=== PATIENT | male | born 1990 | race Caucasian/White ===

== ENCOUNTER 2023-05-15 15:27 | Observation (INO) | payer BC ==
[2023-05-15] MEDS ORDERED: ASPIRIN 81 MG PO STA (16:34)
--- NOTE | 2023-05-15 16:55 | ED ---
Chest Pain HPI - General Chief Complaint: Chest Pain Stated Complaint: Chest Pain Time Seen by Provider: 05/15/23 15:36 Source: patient Mode of arrival: ambulatory Limitations: no limitations - History of Present Illness Initial Comments: Colt Zaman is a previously healthy 32-year-old male presents the emergency department today for evaluation of chest pain. Patient reports that he was smoking a cigarette when he felt pain in his chest and epigastrium. Pain was not associated with any palpitations, diaphoresis or lightheadedness. He does report feeling somewhat short of breath. He has no previous cardiac history. No previous medical history at all. No significant family history. No history of early heart disease, DVT PE in any relatives that he is aware of. Patient reports that the discomfort in her shortness breath or says it is less intense. - Related Data Home Medications Medication Instructions Recorded Confirmed No Known Home Medications 05/15/23 05/15/23 Allergies Allergy/AdvReac Type Severity Reaction Status Date / Time No Known Allergies Allergy Verified 05/15/23 17:57 Review of Systems ROS Statement: Those systems with pertinent positive or pertinent negative responses have been documented in the HPI. ROS Other: All systems not noted in ROS Statement are negative. EKG Findings - EKG Comments: EKG Findings:: EKG interpreted by me, EKG was obtained due to tachycardia chest pain EKG was obtained at 1539 rate is 110 rhythm is a narrow complex tachycardia P-wave before each QRS consistent with a sinus tachycardia. There is a rightward axis normal intervals AK 116 QRS 94 QTC 361 there is no acute ST elevations or depressions no evidence of acute ischemia or infarction. Past Medical History Past Medical History: No Reported History History of Any Multi-Drug Resistant Organisms: None Reported Past Surgical History: No Surgical Hx Reported Past Psychological History: No Psychological Hx Reported Smoking Status: Current every day smoker Past Alcohol Use History: Occasional Past Drug Use History: None Reported General Exam - General Exam Comments Initial Comments: Physical Exam GENERAL: Patient is well-developed and well-nourished. Patient is nontoxic and well-hydrated and is in no distress. HENT: Normocephalic, Atraumatic. EYES: PERRL, EOMI PULMONARY: Unlabored respirations. No audible rales rhonchi or wheezing was noted. CARDIOVASCULAR: Tachycardic, regular ABDOMEN: Soft and nontender with normal bowel sounds. SKIN: Skin is clear with no lesions or rashes and otherwise unremarkable. : Deferred NEUROLOGIC: Patient is alert and oriented x3. Moving all extremities spontaneously MUSCULOSKELETAL: Normal extremities with adequate strength and full range of motion. No lower extremity swelling or edema. No calf tenderness. PSYCHIATRIC: Normal psychiatric evaluation. Limitations: no limitations Course Vital Signs 05/15/23 05/15/23 05/15/23 15:30 16:47 18:00 Temperature 97.9 F Pulse Rate 126 H 93 82 Respiratory 18 20 18 Rate Blood Pressure 131/81 109/87 123/81 O2 Sat by Pulse 97 98 99 Oximetry 05/15/23 05/15/23 05/15/23 18:15 18:30 18:45 Temperature Pulse Rate 80 99 101 H Respiratory 18 4 L 18 Rate Blood Pressure 117/84 117/84 116/81 O2 Sat by Pulse 98 100 100 Oximetry 05/15/23 05/15/23 05/15/23 19:00 19:10 19:19 Temperature Pulse Rate 85 72 85 Respiratory 15 17 18 Rate Blood Pressure 116/81 113/87 122/87 O2 Sat by Pulse 100 Oximetry 05/15/23 05/15/23 05/15/23 19:30 19:40 19:50 Temperature Pulse Rate 71 73 68 Respiratory 15 15 21 Rate Blood Pressure 115/82 114/79 120/82 O2 Sat by Pulse 100 100 100 Oximetry 05/15/23 20:00 Temperature Pulse Rate 72 Respiratory 15 Rate Blood Pressure 115/78 O2 Sat by Pulse 100 Oximetry Chest Pain MDM - [facility] Patient was seen and evaluated, history was obtained from patient Labs and xray were obtained CXR with large right pneumothorax without evidence of tension Patient was transported to resuscitation bay, placed on oxygen 6L NC Patient consented for thoravent placement Versed given for anxiolysis Right sided thoravent placed Xray confrimed placement and re-expansion of lung Patient care discussed with Dr Quintana who accepts admission with consult to pulmonology Patient updated on plan for admission Was pt. sent in by a medical professional or institution (, PA, INSECTICIDE EXPERT, urgent care, hospital, or intermediate...) When possible be specific @ -[No] Did you speak to anyone other than the patient for history (EMS, parent, family, police, friend...)? What history was obtained from this source @ -[No] Did you review nursing and triage notes (agree or disagree)? Why? @ -[I reviewed and agree with nursing and triage notes] Were old charts reviewed (outside hosp., previous admission, EMS record, old EKG, old radiological studies, urgent care reports/EKG's, intermediate records)? Report findings @ -[No old charts were reviewed] Differential Diagnosis (chest pain, altered mental status, abdominal pain women, abdominal pain men, vaginal bleeding, weakness, fever, dyspnea, syncope, hea dache, dizziness, GI bleed, back pain, seizure, CVA, palpatations, mental health, musculoskeletal)? @ -Differential Chest Pain: Stable Angina, Unstable Angina, STEMI, NSTEMI Aortic Dissection, Pneumothorax, Musculoskeletal, Esophageal Spasm GERD, Cholecystitis, Pancreatitis, Zoster, this is not meant to be an all-inclusive list. EKG interpreted by me (3pts min.). @ -[As above] X-rays interpreted by me (1pt min.). @ -Large right-sided pneumothorax no signs of tension CT interpreted by me (1pt min.). @ -[None done] U/S interpreted by me (1pt. min.). @ -[None done] What testing was considered but not performed or refused? (CT, X-rays, U/S, labs)? Why? @ -[None] What meds were considered but not given or refused? Why? @ -Pain medication was declined Did you discuss the management of the patient with other professionals (professionals i.e. , PA, INSECTICIDE EXPERT, lab, RT, psych nurse, social work administrator, bindery leadperson, teacher, security officers and guards, case consultant)? Give summary @ -Discussed with the admitting team Was smoking cessation discussed for >3mins.? @ -YES Was critical care preformed (if so, how long)? @ -[No] Were there social determinants of health that impacted care today? How? (Homelessness, low income, unemployed, alcoholism, drug addiction, transportation, low edu. Level, literacy, decrease access to med. care, prison, rehab)? @ -[No] Was there de-escalation of care discussed even if they declined (Discuss DNR or withdrawal of care, Hospice)? DNR status @ -[No] What co-morbidities impacted this encounter? (DM, HTN, Smoking, COPD, CAD, Cancer, CVA, ARF, Chemo, Hep., AIDS, mental health diagnosis, sleep apnea, morbid obesity)? @ -Smoking Was patient admitted / discharged? Hospital course, mention meds given and route, prescriptions, significant lab abnormalities, going to OR and other pertinent info. @ -Admit Undiagnosed new problem with uncertain prognosis? @ -[No] Drug Therapy requiring intensive monitoring for toxicity (Heparin, Nitro, Insulin, Cardizem)? @ -[No] Were any procedures done? @ -Yes, door of a chest tube Diagnosis/symptom? @ -Spontaneous pneumothorax Acute, or Chronic, or Acute on Chronic? @ -Acute Uncomplicated (without systemic symptoms) or Complicated (systemic symptoms)? @ -Uncomplicated Side effects of treatment? @ -[No] Exacerbation, Progression, or Severe Exacerbation? @ -[No] Poses a threat to life or bodily function? How? (Chest pain, [place], [place], pneumonia, PE, COPD, DKA, ARF, appy, cholecystitis, CVA, Diverticulitis, Homicidal, Suicidal, threat to staff... and all critical care pts) @ -Yes, can become a tension pneumothorax resulting in hemodynamic instability and cardiac pulmonary arrest Disposition Clinical Impression: Spontaneous pneumothorax Disposition: ADMITTED IP TO THIS [facility] Condition: Stable Is patient prescribed a controlled substance at d/c from ED?: No
[2023-05-15 17:03] LABS: Basophils % (A) 0 %; Eosinophils # (A) 0.1 k/uL (0-0.7); Eosinophils % (A) 1 %; HCT 48.6 % (39.0-53.0); Lymphocytes # (A) 2.2 k/uL (1.0-4.8); Lymphocytes % (A) 27 %; MCH 31.7 pg (25.0-35.0); MCV 90.6 fL (80.0-100.0); Mean Platelet Volume 7.6; Monocytes # (A) 0.5 k/uL (0-1.0); Monocytes % (A) 6 %; Neutrophils # (A) 5.4 k/uL (1.3-7.7); Neutrophils % (A) 65 %; Platelet Count 286 k/uL (150-450); RBC 5.36 m/uL (4.30-5.90); RDW 12.7 % (11.5-15.5); WBC 8.3 k/uL (3.8-10.6)
[2023-05-15 17:16] LABS: Partial Thromboplastin Time 23.7 sec (22.0-30.0); Prothrombin Time 10.8 sec (9.0-12.0)
[2023-05-15 17:17] LABS: ALT 55 U/L (4-49); AST 52 U/L (17-59); African American GFR (CKD) >90 (>60 ml/min/1.73 sqM); Albumin 4.7 g/dL (3.5-5.0); Alkaline Phosphatase 70 U/L (38-126); Anion Gap 7 mmol/L; Blood Urea Nitrogen 15 mg/dL (9-20); Calcium 9.4 mg/dL (8.4-10.2); Carbon Dioxide 30 mmol/L (22-30); Chloride 100 mmol/L (98-107); Glucose 93 mg/dL (74-99); Lipase 74 U/L (23-300); Non-African American GFR(CKD) >90 (>60 ml/min/1.73 sqM); Potassium 4.3 mmol/L (3.5-5.1); Sodium 137 mmol/L (137-145); Total Bilirubin 0.5 mg/dL (0.2-1.3); Total Protein 7.8 g/dL (6.3-8.2)
--- NOTE | 2023-05-15 17:52 | XR ---
EXAMINATION TYPE: XR chest 2V DATE OF EXAM: 05/15/2023 5:42 PM COMPARISON: None TECHNIQUE: XR chest 2V . CLINICAL INDICATION:Male, 32 years old with history of Chest Pain; FINDINGS: Lungs/Pleura: Large right-sided pneumothorax with near complete multilobar atelectasis. No evidence f or tension physiology. Left lung is clear. Pulmonary vascularity: Unremarkable. Heart/mediastinum: Cardiomediastinal silhouette is unremarkable. Musculoskeletal: No acute osseous pathology. Findings communicated to Dr. Emily Bradford DO on 05/15/2023 5:[address] Tameka Lynne. IMPRESSION: Large right pneumothorax without evidence for tension physiology.
[2023-05-15] MEDS ORDERED: MIDAZOLAM 1 MG/ML 5 ML VIAL IV STA (18:15)
[2023-05-15] MEDS ORDERED: LIDOCAINE 1% INJ 10MG/ML (20 ML MDV) SQ ONE (19:01)
[2023-05-15] MEDS ORDERED: NALOXONE 0.4 MG/ML 1 ML VIAL IV PRN (19:03)
--- NOTE | 2023-05-15 19:42 | XR ---
EXAMINATION TYPE: XR chest 2V DATE OF EXAM: 05/15/2023 COMPARISON: Earlier today HISTORY: 32-year-old male chest tube placement TECHNIQUE: AP and lateral views FINDINGS: After right-sided thoracic vent placement, there is a residual trace right apical pneumothorax measur ing 7 mm. Some patchy opacity at the right base likely atelectasis. No pleural effusion. Heart normal size. IMPRESSION: Residual trace 7 mm right apical pneumothorax following Thoravent placement. Some patchy right basila r opacity, likely atelectasis.
--- NOTE | 2023-05-16 00:03 | P.HPIM ---
History of Present Illness H&P Date: 05/15/23 The patient is a 32-year-old male with no known PMH who had presented to the emergency room with complaints of chest pain. The patient reports that he was in his usual state of health until this afternoon when while he was smoking a cigarette he suddenly developed chest discomfort and shortness of breath. He denied experiencing diaphoresis, nausea, vomiting, or palpitations. Patient denied recent travel or history of PEs or [place]. Also denied any family history of cardiac disease. Patient denied history of pneumothorax. Patient reports that his chest pain had resolved at the time of interview when he felt that his baseline. In the emergency room, chest x-ray revealed a large right-sided pneumothorax without evidence of tension. A thora-vent was placed by the ED provider with subsequent chest x-ray showing residual trace 7 mm right apical pneumothorax. EKG upon presentation had revealed sinus tachycardia at 110 bpm. Laboratory evaluation in the emergency room was unremarkable except for an ALT of 55. Patient denied hitory of trauma. ED documentation reviewed and case discussed with ED provider. Review of systems: Pertinent positives and negatives as discussed in HPI, a complete review of systems was performed and all other systems are negative. Physical examination: Vital signs reviewed General: non toxic, no distress, appears at stated age, normal weight Derm: no unusual rashes/lesions, warm Head: atraumatic, normocephalic, symmetric Eyes: EOMI, no lid lag, anicteric sclera, pupils equal round reactive to light ENT: Nose and ears atraumatic Neck: No cervical lymphadenopathy, trachea midline, supple Mouth: no lip lesion, mucus membranes moist Cardiovascular: S1S2 reg, no murmur, positive dorsalis pedis pulse bilateral, no edema, R sided thoravent noted Lungs: CTA bilateral, no rhonchi, no rales, no accessory muscle use Abdominal: soft, nontender to palpation, no guarding Ext: muscle strength 5 out of 5 in all 4 extremities grossly, no gross muscle atrophy, no contractures, Neuro: CN II-XI grossly intact, no gross focal neuro deficits Psych: Alert, oriented, appropriate affect Assessment: Spontaneous pneumothorax Imaging: In the emergency room, chest x-ray revealed a large right-sided pneumothorax without evidence of tension. Data Review: Laboratory evaluation in the emergency room was unremarkable except for an ALT of 55. Plan: Status post right sided thora-vent placement Patient advised on importance of smoking cessation Pulmonary consulted DVT prophylaxis: Lovenox Subq The patient is admitted with an anticipated less than 2 midnight stay for evaluation of pneumothorax CODE STATUS: Full Code Discussed with: Patient Anticipated discharge place: Home Past Medical History Past Medical History: No Reported History History of Any Multi-Drug Resistant Organisms: None Reported Past Surgical History: No Surgical Hx Reported Past Psychological History: No Psychological Hx Reported Smoking Status: Current every day smoker Past Alcohol Use History: Occasional Past Drug Use History: None Reported - Past Family History Father Family Medical History: No Reported History (patient reports family is healthy) Medications and Allergies Home Medications Medication Instructions Recorded Confirmed Type No Known Home Medications 05/15/23 05/15/23 History Allergies Allergy/AdvReac Type Severity Reaction Status Date / Time No Known Allergies Allergy Verified 05/15/23 17:57 Physical Exam Vitals: Vital Signs Temp Pulse Resp BP Pulse Ox 05/15/23 20:40 68 15 122/83 100 05/15/23 20:30 75 20 115/77 05/15/23 20:20 69 17 115/77 100 05/15/23 20:00 72 15 115/78 100 05/15/23 19:50 68 21 120/82 100 05/15/23 19:40 73 15 114/79 100 05/15/23 19:30 71 15 115/82 100 05/15/23 19:19 85 18 122/87 100 05/15/23 19:10 72 17 113/87 05/15/23 19:00 85 15 116/81 05/15/23 18:45 101 H 18 116/81 100 05/15/23 18:30 99 4 L 117/84 100 05/15/23 18:15 80 18 117/84 98 05/15/23 18:00 82 18 123/81 99 05/15/23 16:47 93 20 109/87 98 05/15/23 15:30 97.9 F 126 H 18 131/81 97 Intake and Output 05/15/23 05/15/23 05/15/23 06:59 14:59 22:59 Other: Weight 63.503 kg Results CBC & Chem 7: 05/15/23 16:45 05/15/23 16:45 Labs: Abnormal Lab Results - Last 24 Hours (Table) 05/15/23 Range/Units 16:45 ALT 55 H (4-49) U/L
[2023-05-16] MEDS: ENOXAPARIN 40 MG/0.4 ML SYRINGE SQ SCH (08:11)
--- NOTE | 2023-05-16 11:07 | P.CNPUL ---
History of Present Illness Consult date: 05/16/23 Requesting physician: Yasmany Chatterjee Reason for consult: abnormal CXR/CT Chief complaint: Right-sided chest pain History of present illness: This is a very pleasant 32-year-old male patient with no significant past medical history. He is does have chronic and ongoing tobacco dependence. Patient states he was sitting up at his bedside and is having a cigarette when he felt sudden onset of right-sided chest pain and abdominal discomfort recently here to the emergency room yesterday for the same. He was found have a large right-sided pneumothorax without evidence of tension. A thoravent catheter was placed in the emergency department. White count 8.3. Hemoglobin 17.0. Platelets 286. Sodium 137. Potassium 4.3. Bicarb 30. BUN 15. Creatinine 0.88. AST 52. ALT 55. Troponin negative 1. He is seen today in consultation on the regular medical floor. He is currently sitting up in bed. Awake and alert in no acute distress. Right-sided thoracotomy remains in place to Pleur-evac to low continuous wall suction. No leak. His follow up chest x-ray shows a tiny right apical pneumothorax. He denies any worsening shortness of breath, cough or congestion. Less discomfort in the right chest. Maintaining good O2 saturations up to 100% on room air. Afebrile. Hemodynamically stable. Review of Systems REVIEW OF SYSTEMS: CONSTITUTIONAL: Denies any recent significant weight loss or weight gain. EYES: Denies change in vision. EARS, NOSE, MOUTH, THROAT: Denies headaches, denies sore throat. CARDIOVASCULAR: Positive for right-sided chest pain, no palpitations or syncopal episodes. RESPIRATORY: Positive for shortness of breath, no cough, congestion or hemoptysis. GASTROINTESTINAL: Denies change in appetite, denies abdominal pain GENITOURINARY: Denies hematuria, denies infections. MUSKULOSKELETAL: Denies pain, denies swelling. INTEGUMENTARY: Denies rash, denies eczema. NEUROLOGICAL: Denies recent memory loss, no recent seizure activity. PSYCHIATRIC: Denies anxiety, denies depression. HEMATOLOGIC/LYMPHATIC: Denies anemia, denies enlarged lymph nodes. Past Medical History Past Medical History: No Reported History History of Any Multi-Drug Resistant Organisms: None Reported Past Surgical History: No Surgical Hx Reported Past Psychological History: No Psychological Hx Reported Smoking Status: Current every day smoker Past Alcohol Use History: Occasional Past Drug Use History: None Reported - Past Family History Father Family Medical History: No Reported History (patient reports family is healthy) Medications and Allergies Home Medications Medication Instructions Recorded Confirmed Type No Known Home Medications 05/15/23 05/15/23 History Allergies Allergy/AdvReac Type Severity Reaction Status Date / Time No Known Allergies Allergy Verified 05/15/23 17:57 Physical Exam Vitals: Vital Signs Temp Pulse Pulse Resp BP BP Pulse Ox 05/16/23 08:26 97 05/16/23 07:00 98.0 F 65 16 108/69 97 05/16/23 02:45 98.1 F 57 L 16 118/75 100 05/16/23 02:15 16 05/15/23 21:17 98.0 F 59 L 16 115/74 100 05/15/23 20:40 68 15 122/83 100 05/15/23 20:30 75 20 115/77 05/15/23 20:20 69 17 115/77 100 05/15/23 20:00 72 15 115/78 100 05/15/23 19:50 68 21 120/82 100 05/15/23 19:40 73 15 114/79 100 05/15/23 19:30 71 15 115/82 100 05/15/23 19:19 85 18 122/87 100 05/15/23 19:10 72 17 113/87 05/15/23 19:00 85 15 116/81 05/15/23 18:45 101 H 18 116/81 100 05/15/23 18:30 99 4 L 117/84 100 05/15/23 18:15 80 18 117/84 98 05/15/23 18:00 82 18 123/81 99 05/15/23 16:47 93 20 109/87 98 05/15/23 15:30 97.9 F 126 H 18 131/81 97 Intake and Output 05/15/23 05/16/23 05/16/23 22:59 06:59 14:59 Intake Total 118 Balance 118 Intake: Oral 118 Other: # Voids 1 1 Weight 63.503 kg GENERAL EXAM: Alert, very pleasant 32-year-old male patient, on room air, comfortable in no apparent distress. HEAD: Normocephalic. EYES: Normal reaction of pupils, equal size. NOSE: Clear with pink turbinates. THROAT: No erythema or exudates. NECK: No masses, no JVD. CHEST: No chest wall deformity. Right sided Thora-Vent catheter in place. LUNGS: Equal air entry with no crackles, wheeze, rhonchi or dullness. CVS: S1 and S2 normal with no audible murmur, regular rhythm. ABDOMEN: No hepatosplenomegaly, normal bowel sounds, no guarding or rigidity. SPINE: No scoliosis or deformity SKIN: No rashes CENTRAL NERVOUS SYSTEM: No focal deficits, tone is normal in all 4 extremities. EXTREMITIES: There is no peripheral edema. No clubbing, no cyanosis. Peripheral pulses are intact. Results - Laboratory Findings CBC and BMP: 05/15/23 16:45 05/15/23 16:45 PT/INR, D-dimer PT 10.8 sec (9.0-12.0) 05/15/23 16:45 INR 1.0 (<1.2) 05/15/23 16:45 Abnormal lab findings: Abnormal Labs 05/15/23 16:45 ALT 55 H - Diagnostic Findings Chest x-ray: image reviewed Assessment and Plan Assessment: Right-sided chest pain secondary to spontaneous pneumothorax. Status post Thora-Vent placement on 05/15/2023 Chronic and ongoing tobacco dependence Plan: The patient was seen and evaluated Chest x-ray, labs and medications reviewed Thora vent remains in place Add incentive spirometer Educated regarding the importance of complete smoking cessation NicoDerm patch will be offered Follow-up chest x-ray in a.m. We will continue to follow and make further recommendations based on his clinical status I have personally seen and examined the patient, performed the documentation and the assessment and plan as written. Number of minutes spent on the visit: 20.
--- NOTE | 2023-05-16 12:00 | P.PN ---
Subjective Progress Note Date: 05/16/23 No new complaints today. Seen by pulmonology, added IS. Ongoing monitoring. Gen: awake, alert HEENT: normocephalic, atraumatic, good hearing acuity, moist mucous membranes Resp: good air exchange, breathing comfortably with no accessory muscle use CVS: good distal perfusion x 4, GI: soft, NTTP, ND : no SPT, no CVAT, bergeron catheter not present MSK: no pitting edema, no clubbing Neuro: non-focal, moving all extremities Psych: cooperative, euthymic mood Hospital Course: The patient is a 32-year-old male with no known PMH who had presented to the emergency room with complaints of chest pain. In the emergency room, chest x- ray revealed a large right-sided pneumothorax without evidence of tension. A thora-vent was placed by the ED provider with subsequent chest x-ray showing residual trace 7 mm right apical pneumothorax. EKG upon presentation had revealed sinus tachycardia at 110 bpm. Laboratory evaluation in the emergency room was unremarkable except for an ALT of 55. Assessment: Spontaneous Pneumothorax Nicotine Dependence Plan: Status post right sided thora-vent placement Patient advised on importance of smoking cessation Pulmonary consulted DVT prophylaxis: Lovenox Subq Objective - Vital Signs Vital signs: Vital Signs Temp 98.0 F 05/16/23 07:00 Pulse 65 05/16/23 07:00 Resp 16 05/16/23 07:00 BP 108/69 05/16/23 07:00 Pulse Ox 97 05/16/23 08:26 FiO2 Intake & Output 05/15/23 05/16/23 05/16/23 18:59 06:59 18:59 Intake Total 118 Balance 118 Weight 63.503 kg 63.503 kg Intake: Oral 118 Other: # Voids 1 - Labs CBC & Chem 7: 05/15/23 16:45 05/15/23 16:45 Labs: Abnormal Lab Results - Last 24 Hours (Table) 05/15/23 Range/Units 16:45 ALT 55 H (4-49) U/L
[2023-05-17 07:21] VITALS: RESP 18
[2023-05-17 07:22] VITALS: PULSE 54
--- NOTE | 2023-05-17 07:34 | XR ---
EXAMINATION TYPE: XR chest 1V portable DATE OF EXAM: 05/17/2023 7:15 AM COMPARISON: Chest radiographs from 05/15/2023 TECHNIQUE: XR chest 1V portable Frontal view of the chest. CLINICAL INDICATION:Male, 32 years old with history of Pneumothorax; FINDINGS: Lungs/Pleura: There is no evidence of pleural effusion, focal consolidation, or pneumothorax. Pulmonary vascularity: Unremarkable. Heart/mediastinum: Cardiomediastinal silhouette is unremarkable. Musculoskeletal: No acute osseous pathology. Right thoracotomy tube without evidence of pneumothorax. IMPRESSION: Right thoracotomy tube without evidence of pneumothorax.
--- NOTE | 2023-05-17 09:54 | XR ---
EXAMINATION TYPE: XR chest 1V portable DATE OF EXAM: 05/17/2023 8:23 AM COMPARISON: Chest radiographs from 05/17/2023 TECHNIQUE: XR chest 1V portable Portable AP radiograph of the chest. CLINICAL INDICATION:Male, 32 years old with history of Pneumothorax; FINDINGS: Lungs/Pleura: There is no evidence of pleural effusion, focal consolidation, or pneumothorax. Pulmonary vascularity: Unremarkable. Heart/mediastinum: Cardiomediastinal silhouette is unremarkable. Musculoskeletal: No acute osseous pathology. Other findings: None Lines/Tubes: Right thoracotomy tube in stable position. IMPRESSION: Right thoracotomy tube without evidence of pneumothorax.
--- NOTE | 2023-05-17 10:45 | XR ---
EXAMINATION TYPE: XR chest 1V portable DATE OF EXAM: 05/17/2023 at 10:34 AM. COMPARISON: 05/17/2023 at HISTORY: Right-sided pneumothorax. TECHNIQUE: Single frontal view of the chest is obtained. FINDINGS: Right-sided chest tube is unchanged. There is no focal air space opacity, pleural effusion , or pneumothorax seen. The cardiac silhouette size is within normal limits. The osseous structure s are intact. IMPRESSION: Unchanged right chest tube with no pneumothorax seen at this time.
--- NOTE | 2023-05-17 11:03 | P.PN ---
Subjective Progress Note Date: 05/17/23 This is a very pleasant 32-year-old male patient with no significant past medical history. He is does have chronic and ongoing tobacco dependence. Patient states he was sitting up at his bedside and is having a cigarette when he felt sudden onset of right-sided chest pain and abdominal discomfort recently here to the emergency room yesterday for the same. He was found have a large right-sided pneumothorax without evidence of tension. A thoravent catheter was placed in the emergency department. White count 8.3. Hemoglobin 17.0. Platelets 286. Sodium 137. Potassium 4.3. Bicarb 30. BUN 15. Creatinine 0.88. AST 52. ALT 55. Troponin negative 1. He is seen today in consultation on the regular medical floor. He is currently sitting up in bed. Awake and alert in no acute distress. Right-sided thoracotomy remains in place to Pleur- evac to low continuous wall suction. No leak. His follow up chest x-ray shows a tiny right apical pneumothorax. He denies any worsening shortness of breath, cough or congestion. Less discomfort in the right chest. Maintaining good O2 saturations up to 100% on room air. Afebrile. Hemodynamically stable. The patient is seen today in 05/17/2023 in follow-up on the regular medical floor. He is currently resting comfortably in bed. Awake and alert in no acute distress. Maintaining O2 saturations in the 90s on room air. Today's chest x- ray reveals evidence of right thoracotomy tube in position. No evidence of pneumothorax. He continues to work well with the incentive spirometer. His pain is well controlled. Lovenox for DVT prophylaxis. Objective - Vital Signs Vital signs: Vital Signs Temp 97.2 F L 05/17/23 07:00 Pulse 54 L 05/17/23 07:00 Resp 18 05/17/23 07:00 BP 107/66 05/17/23 07:00 Pulse Ox 98 05/17/23 07:00 FiO2 Intake & Output 05/16/23 05/17/23 05/17/23 18:59 06:59 18:59 Intake Total 236 120 Balance 236 120 Intake: Oral 236 120 Other: Voiding Method Toilet # Voids 3 1 # Bowel Movements 0 - Exam GENERAL EXAM: Alert, active, 32-year-old male, on room air, comfortable in no apparent distress. HEAD: Normocephalic. EYES: Normal reaction of pupils, equal size. NOSE: Clear with pink turbinates. THROAT: No erythema or exudates. NECK: No masses, no JVD. CHEST: No chest wall deformity. Right sided Thora-Vent in place. LUNGS: Equal air entry with no crackles, wheeze, rhonchi or dullness. CVS: S1 and S2 normal with no audible murmur, regular rhythm. ABDOMEN: No hepatosplenomegaly, normal bowel sounds, no guarding or rigidity. SPINE: No scoliosis or deformity SKIN: No rashes CENTRAL NERVOUS SYSTEM: No focal deficits, tone is normal in all 4 extremities. EXTREMITIES: There is no peripheral edema. No clubbing, no cyanosis. Peripheral pulses are intact. - Labs CBC & Chem 7: 05/15/23 16:45 05/15/23 16:45 Assessment and Plan Assessment: Right-sided chest pain secondary to spontaneous pneumothorax. Status post Thora-Vent placement on 05/15/2023 Chronic and ongoing tobacco dependence Plan: The patient was seen and evaluated Chest x-ray, medications reviewed Thora vent clamped this a.m. Follow-up chest x-ray reveals no pneumothorax Plan is to remove Thora vent today Cleared for discharge today Continue incentive spirometer Educated regarding the importance of complete smoking cessation Follow-up in our office in 1 week I have personally seen and examined the patient, performed the documentation and the assessment and plan as written. Number of minutes spent on the visit: 10.
[2023-05-17] MEDS: ENOXAPARIN 40 MG/0.4 ML SYRINGE SQ SCH (12:31)
--- NOTE | 2023-05-17 13:47 | XR ---
EXAMINATION TYPE: XR chest 1V portable DATE OF EXAM: 05/17/2023 COMPARISON: 05/17/2023 at 10:31 AM HISTORY: Right-sided pneumothorax. TECHNIQUE: Single frontal view of the chest is obtained. IMPRESSION: The previously seen right-sided chest tube has been removed. No pneumothorax is seen. The lungs are clear. The cardiac silhouette and pulmonary vessels are within normal limits.
[2023-05-17 14:03] VITALS: BP 101/68; TEMP 97.4
--- NOTE | 2023-05-17 17:16 | P.DS ---
Providers Date of admission: 05/15/23 19:04 Expected date of discharge: 05/17/23 Attending physician: Shauna Quintana MD Consults: 05/15/23 19:03 Consult Physician Stat Consulting Provider: Alexander Monet Reason/Comments: spontaneous pneumothorax Do you want consulting provider notified?: Already Contacted Primary care physician: Stated None Hospital Course: Assessment: Spontaneous Pneumothorax Nicotine Dependence Hospital Course: The patient is a 32-year-old male with no known PMH who had presented to the emergency room with complaints of chest pain. In the emergency room, chest x- ray revealed a large right-sided pneumothorax without evidence of tension. A thora-vent was placed by the ED provider with subsequent chest x-ray showing residual trace 7 mm right apical pneumothorax. EKG upon presentation had revealed sinus tachycardia at 110 bpm. Laboratory evaluation in the emergency room was unremarkable except for an ALT of 55. Pt was monitored for two days which thoravent in place. It was pulled out on 05/17 by pulmonology without event. Pts repeat CXRs showed re-expansion of right lung. He was discharged home with pulmonology f/u. Gen: awake, alert HEENT: normocephalic, atraumatic, good hearing acuity, moist mucous membranes Resp: good air exchange, breathing comfortably with no accessory muscle use CVS: good distal perfusion x 4, GI: soft, NTTP, ND : no SPT, no CVAT, bergeron catheter not present MSK: no pitting edema, no clubbing Neuro: non-focal, moving all extremities Psych: cooperative, euthymic mood Patient Condition at Discharge: Good Plan - Discharge Summary New Discharge Prescriptions: No Action No Known Home Medications Discharge Medication List No Known Home Medications 05/15/23 [History] Follow up Appointment(s)/Referral(s): Feliciano Love DO [Doctor of Osteopathic Medicine] - 06/09/23 9:00 am None,Stated [Primary Care Provider] - 1-2 days Patient Instructions/Handouts: Spontaneous Pneumothorax (DC) Discharge Disposition: HOME SELF-CARE
== END 2023-05-17 14:54 | disposition home or self-care (01) ==
LOC: EC 15:27 → 6NMEDSUR 19:04
PROVIDERS: ADMIT Internal Medicine; ATTEND Internal Medicine
DX: J93.83 Other pneumothorax (principal); R00.0 Tachycardia, unspecified; F17.200 Nicotine dependence, unspecified, uncomplicated
CPT/HCPCS: 96372; 96374; 99285; 36415; 94760; 93005; 80053; 83690; 83735; 84484; 85025; 85610; 85730; 71045; 71046; G0378 ×3; J2001; J1650; J2250